=== PATIENT | female | born 1985 | race Caucasian/White ===

== ENCOUNTER → 2017-04-21 | Outpatient (CLI) | payer OTHER ==
[~2017-04-21] VITALS: Ht 162.6 cm; Wt 59.0 kg
[~2017-04-21] MED LIST: BALZIVA1 EACH PO; CELEXA20 MG PO; FEMCON FE TABL1 EACH PO; IMITREX50 MG PO; SYNTHROID112 MCG PO; SYNTHROID50 MCG PO; VITAMIN B-121000 MC1 SL; XANAX0.5 MG PO; [UNRECOGNIZED DRUG - OTHER] PO
== END | disposition home or self-care (01) ==
LOC: AMB 11:44
PROC: 0DJ0XZZ Inspection of Upper Intestinal Tract, External Approach (ICD-10-PCS; principal; 2017-04-21)
DX: R13.10 Dysphagia, unspecified (principal); Z53.09 Procedure and treatment not carried out because of other contraindication

== ENCOUNTER → 2017-04-28 | Outpatient (CLI) | payer OTHER ==
[~2017-04-28] VITALS: Ht 162.6 cm; Wt 59.0 kg
== END | disposition home or self-care (01) ==
LOC: AMB 11:24
PROVIDERS: Internal Medicine Gastroenterology
DX: R13.10 Dysphagia, unspecified (principal); K29.50 Unspecified chronic gastritis without bleeding; E03.9 Hypothyroidism, unspecified
CPT/HCPCS: 82948; 88305; 88342 TC; J2250